=== PATIENT | female | born 1990 | race Two or more races ===

== ENCOUNTER 2023-04-16 16:11 | Inpatient (IN) | payer OTHER ==
[~2023-04-16] VITALS: Ht 157.5 cm; Wt 93.0 kg
[2023-04-20] MEDS ORDERED: PRENA1 CHEW TA1.4 MG PO (05:57)
[2023-04-20] MEDS ORDERED: SYNTHROID112 MCG PO (05:58)
== END 2023-04-22 12:27 | disposition home or self-care (01) | DRG 768 ==
LOC: LDR 04-20 04:09 → OB/GYN 04-20 15:42 → LDR 04-25 14:45
PROVIDERS: ADMIT Obstetrics & Gynecology Gynecology; ATTEND Obstetrics & Gynecology Gynecology
PROC: 10E0XZZ Delivery of Products of Conception, External Approach (ICD-10-PCS; principal; 2023-04-20)
PROC: 0DQR0ZZ Repair Anal Sphincter, Open Approach (ICD-10-PCS; 2023-04-20)
PROC: 4A1HXCZ Monitoring of Products of Conception, Cardiac Rate, External Approach (ICD-10-PCS; 2023-04-20)
DX: O70.21 Third degree perineal laceration during delivery, IIIa (principal); Z37.0 Single live birth; O99.824 Streptococcus B carrier state complicating childbirth; Z3A.39 39 weeks gestation of pregnancy; Z20.822 Contact with and (suspected) exposure to COVID-19